=== PATIENT | female | born 1960 | race Caucasian/White ===

== ENCOUNTER → 2023-12-14 11:13 | Outpatient (REF) | payer BC, SELFPAY | LOC: DHSLP 11:13 | PROVIDERS: ATTENDING PHYSICIAN Internal Medicine Cardiovascular Disease; FAMILY PHYSICIAN Internal Medicine | DX: G47.33 Obstructive sleep apnea (adult) (pediatric) (principal); R06.83 Snoring | CPT/HCPCS: 95800 ==